=== PATIENT | female | born 1990 | race Hispanic/Latino ===

== ENCOUNTER 2023-10-22 12:53 | Emergency (ER) | payer OTHER ==
[~2023-10-22] VITALS: Ht 154.9 cm; Wt 79.4 kg
[2023-10-22 14:23] LABS: BASOPHILS % 0.2 % (0.0-1.0); EOSINOPHILS # (AUTO) 0.1 (0.0-0.4); EOSINOPHILS % 0.9 % (0.0-6.0); HEMATOCRIT 39.7 % (34.2-44.1); HEMOGLOBIN 12.8 g/dL (12.0-16.0); LYMPHOCYTES # (AUTO) 2.1 (1.0-3.2); LYMPHOCYTES % 24.5 % (18.0-39.1); MEAN CORPUSCULAR HEMOGLOBIN 28.8 pg (28-32); MEAN CORPUSCULAR HGB CONC 32.2 g/dL (31-35); MEAN CORPUSCULAR VOLUME 89.2 fL (81-99); MONOCYTES # (AUTO) 0.4 (0.2-0.8); MONOCYTES % 4.9 % (4.4-11.3); NEUTROPHILS % 69.3 % (38.7-80.0); PLATELET COUNT 342 x10e3/uL (140-360); RED BLOOD COUNT 4.45 x10e6/uL (3.6-5.1); RED CELL DISTRIBUTION WIDTH 12.3 % (11.7-14.4); WHITE BLOOD COUNT 8.62 x10e3/uL (4.8-10.8)
[2023-10-22 14:38] LABS: ANION GAP 13.8 mmol/L (8-16); BILIRUBIN,TOTAL 0.3 mg/dL (0.2-1.2); CALCIUM 9.7 mg/dL (8.4-10.2); CREATININE, SERUM 0.78 mg/dL (0.57-1.11); POTASSIUM 3.8 mmol/L (3.5-5.1); TOTAL PROTEIN 8.2 g/dL (6.5-8.1)
[2023-10-22] MEDS: DIPHENHYDRAMINE HCL INJ 50 MG/ML VIAL IV STA (14:54)
[2023-10-22] MEDS: METOCLOPRAMIDE HCL 10 MG/2ML VIAL IV STA (14:56)
[2023-10-22] MEDS: SODIUM CHLORIDE 0.9% 1000ML 1,000 ML IV STA (14:56)
[2023-10-22] MEDS: KETOROLAC TROMETHAMINE 30 MG/ML VIAL IV STA (14:57)
[2023-10-22] MEDS: METHYLPREDNISOLONE SOD SUCC 125 MG/2ML VIAL IV STA (14:57)
[2023-10-22 15:03] LABS: AMPHETAMINES SCREEN,URINE NEGATIVE (NEGATIVE); BENZODIAZEPINES SCREEN,URINE NEGATIVE (NEGATIVE); CANNABINOIDS SCREEN,URINE NEGATIVE (NEGATIVE); METHADONE SCREEN, URINE NEGATIVE (NEGATIVE); OPIATES SCREEN,URINE NEGATIVE (NEGATIVE); PHENCYCLIDINE SCREEN,URINE NEGATIVE (NEGATIVE); PREGNANCY TEST, URINE NEGATIVE (NEGATIVE)
[2023-10-22] MEDS ORDERED: FIORICET 50-301 EACH PO (15:26)
[2023-10-22 16:19] VITALS: O2SAT 100
[2023-10-22] MEDS ORDERED: AUGMENTIN 500-1 EACH PO (16:20)
== END 2023-10-22 16:24 | disposition home or self-care (01) ==
LOC: ER 13:26
DX: R51.9 Headache, unspecified (principal); H53.8 Other visual disturbances
CPT/HCPCS: 36415; 70450; 80053; 80307; 81025; 85025; 99284; J1200; J1885; J2765; J2919; J7030